=== PATIENT | female | born 1940 | race Caucasian/White ===

== ENCOUNTER 2022-09-03 13:12 | Day surgery (SDC) | payer MEDICARE, BC ==
[~2022-09-03] VITALS: Ht 160 cm; Wt 49.0 kg
[2022-09-03 11:35] VITALS: BP 216/80
[~2022-09-03 13:12] MED LIST: ASPI-611 PO; CLOP75TA34 PO; DILT120C62 PO; ESOM20CA PO; ROSU10TA2 PO; ZOLP5TAB2 PO
[2022-09-03] MEDS ORDERED: CITA10TA93 PO (13:41)
[2022-09-03] MEDS ORDERED: DIGO125T97 PO (13:42)
[2022-09-03] MEDS ORDERED: LISI20TA28 PO (13:43)
[2022-09-03] MEDS ORDERED: MONT-40 PO (13:44)
[2022-09-03] MEDS ORDERED: ESOM40CA49 PO (13:45)
[2022-09-03] MEDS ORDERED: FENTANYL CITRATE/PF 50 MCG/1 ML VIAL ONE (13:46)
[2022-09-03] MEDS ORDERED: MIDAZolam 1 MG/ML 5ML VIAL ONE (13:48)
[2022-09-03] MEDS ORDERED: LIDOcaine Viscous 15ml cup ONE (13:58)
[2022-09-03 14:35] VITALS: BP 150/78
[2022-09-03] MEDS ORDERED: CLOP75TA33 PO (14:42)
[2022-09-03 14:45] VITALS: BP 158/71
[2022-09-03 14:55] VITALS: BP 154/74
[2022-09-03 15:05] VITALS: BP 160/58
== END 2022-09-03 15:12 | disposition home or self-care (01) ==
LOC: GI LAB 13:12
PROVIDERS: ATTEND Internal Medicine Gastroenterology
DX: D12.9 Benign neoplasm of anus and anal canal (principal); K57.30 Diverticulosis of large intestine without perforation or abscess without bleeding; K29.50 Unspecified chronic gastritis without bleeding; K31.7 Polyp of stomach and duodenum; K44.9 Diaphragmatic hernia without obstruction or gangrene; K21.9 Gastro-esophageal reflux disease without esophagitis; I10 Essential (primary) hypertension; E78.5 Hyperlipidemia, unspecified; Z79.01 Long term (current) use of anticoagulants; Z86.73 Personal history of transient ischemic attack (TIA), and cerebral infarction without residual deficits
CPT/HCPCS: 43239; 45380; 99153; G0500; J2250; J3010; J7030; Z7512; 99152